=== PATIENT | male | born 1935 | race Caucasian/White ===

== ENCOUNTER 2016-08-08 10:57 | Emergency (ER) | payer BC ==
[~2016-08-08] VITALS: Ht 177.8 cm; Wt 105.0 kg
[2016-08-08 10:59] VITALS: BP 168/98; PULSE 75; RESP 15; TEMP 97.9; O2SAT 98
[2016-08-08] MEDS ORDERED: SODIUM CHLORIDE 0.9% FLUSH 10 ML FLUSH IVF PRN (11:30)
[2016-08-08 11:37] VITALS: BP 147/86; RESP 14; O2SAT 98
[2016-08-08 11:38] VITALS: BP 157/87; RESP 16
[2016-08-08 11:39] VITALS: BP 157/93; RESP 16
--- NOTE | 2016-08-08 11:50 | PD ---
HPI Chief Complaint: Dizziness Time Seen by Provider: 11:12 Travel History International Travel<30 days: No Contact w/Intl Traveler<30days: No Traveled to known affect area: No History of Present Illness HPI 81yo M with no PMH presents to the ED with c/o dizziness yesterday. States at 8am, he swiveled his chair and tried to get up but felt lightheaded and fell on left shoulder but has no pain there. FROM in left shoulder. Denies any head trauma or LOC. Had 2 more episodes of lightheadedness and both is when he sits up from lying position. Both times he lie back down and felt better. Currently does not have any dizziness. Denies any fever, chest pain, sob, n/v, abdominal pain, focal weakness or numbness. PFSH Past Medical History Chemotherapy: Yes (PROSTATE CA) Hypertension: Yes Past Surgical History Prostatectomy: Yes Social History Alcohol Use: Yes Tobacco Use: No Substance Use: No Allergies-Medications (Allergen,Severity, Reaction): Coded Allergies: No Known Allergies (Unverified , 08/08/16) Reported Meds & Prescriptions Reported Meds & Active Scripts Active No Active Prescriptions or Reported Medications Review of Systems Except as stated in HPI: all other systems reviewed are Neg Physical Exam Narrative GENERAL: 81yo M not in distress. SKIN: Focused skin assessment warm/dry. HEAD: Atraumatic. Normocephalic. EYES: Pupils equal and round. No scleral icterus. No injection or drainage. + Horizontal nystagmus bilaterally. States this is not new. No vertical nystagmus. ENT: No nasal bleeding or discharge. Mucous membranes pink and moist. NECK: Trachea midline. No JVD. CARDIOVASCULAR: Regular rate and rhythm. No murmur appreciated. RESPIRATORY: No accessory muscle use. Clear to auscultation. Breath sounds equal bilaterally. GASTROINTESTINAL: Abdomen soft, non-tender, nondistended. No rebound tenderness or guarding. MUSCULOSKELETAL: No obvious deformities. No clubbing. No cyanosis. No edema. Left shoulder: FROM left shoulder. No tenderness. Sensation intact. Distal pulses intact. NEUROLOGICAL: Awake and alert. No obvious cranial nerve deficits. Motor grossly within normal limits. Normal speech. PSYCHIATRIC: Appropriate mood and affect; insight and judgment normal. Data Data Last Documented VS Vital Signs Date Time Temp Pulse Resp B/P Pulse Ox O2 Delivery O2 Flow Rate FiO2 08/08/16 11:39 73 16 157/93 08/08/16 11:37 98 Room Air 08/08/16 10:59 97.9 Orders Electrocardiogram (08/08/16 ) Basic Metabolic Panel (Bmp) (08/08/16 11:27) Complete Blood Count With Diff (08/08/16 11:27) Magnesium (Mg) (08/08/16 11:27) Ckmb (Isoenzyme) Profile (08/08/16 11:27) Troponin I (08/08/16 11:27) Urinalysis - C+S If Indicated (08/08/16 11:27) Ct Brain W/O Iv Contrast(Rout) (08/08/16 11:27) Blood Glucose (08/08/16 11:27) Ecg Monitoring (08/08/16 11:27) Iv Access Insert/Monitor (08/08/16 11:27) Oximetry (08/08/16 11:27) Sodium Chloride 0.9% Flush (Ns Flush) (08/08/16 11:30) Orthostatic Vital Signs (08/08/16 11:27) CKMB (08/08/16 11:40) CKMB% (08/08/16 11:40) Labs Laboratory Tests Test 08/08/16 08/08/16 11:40 12:54 White Blood Count 8.2 TH/MM3 Red Blood Count 4.84 MIL/MM3 Hemoglobin 15.3 GM/DL Hematocrit 43.3 % Mean Corpuscular Volume 89.3 FL Mean Corpuscular Hemoglobin 31.6 PG Mean Corpuscular Hemoglobin 35.3 % Concent Red Cell Distribution Width 13.1 % Platelet Count 112 TH/MM3 Mean Platelet Volume 9.8 FL Neutrophils (%) (Auto) 71.3 % Lymphocytes (%) (Auto) 21.5 % Monocytes (%) (Auto) 6.1 % Eosinophils (%) (Auto) 0.8 % Basophils (%) (Auto) 0.3 % Neutrophils # (Auto) 5.8 TH/MM3 Lymphocytes # (Auto) 1.8 TH/MM3 Monocytes # (Auto) 0.5 TH/MM3 Eosinophils # (Auto) 0.1 TH/MM3 Basophils # (Auto) 0.0 TH/MM3 CBC Comment DIFF FINAL Differential Comment Sodium Level 143 MEQ/L Potassium Level 4.3 MEQ/L Chloride Level 109 MEQ/L Carbon Dioxide Level 26.8 MEQ/L Anion Gap 7 MEQ/L Blood Urea Nitrogen 21 MG/DL Creatinine 1.10 MG/DL Estimat Glomerular Filtration 64 ML/MIN Rate Random Glucose 102 MG/DL Calcium Level 8.8 MG/DL Magnesium Level 2.3 MG/DL Total Creatine Kinase 141 U/L Creatine Kinase MB 1.2 NG/ML Troponin I 0.04 NG/ML Urine Color LIGHT-YELLOW Urine Turbidity CLEAR Urine pH 6.5 Urine Specific Garner 1.009 Urine Protein NEG mg/dL Urine Glucose (UA) NEG mg/dL Urine Ketones NEG mg/dL Urine Occult Blood NEG Urine Nitrite NEG Urine Bilirubin NEG Urine Urobilinogen LESS THAN 2.0 MG/DL Urine Leukocyte Esterase NEG Urine RBC LESS THAN 1 /hpf Microscopic Urinalysis Comment CULT NOT INDICATED MDM Medical Decision Making Medical Screen Exam Complete: Yes Emergency Medical Condition: Yes Interpretation(s) EKG: NSR 67bpm. 1st degree AV block. No ST segment elevation or depression. Differential Diagnosis Arrhythmia vs. dehydration vs. electrolyte abnormality vs. intracranial mass Narrative Course 81yo M with no PMH presents to the ED with c/o lightheaded when he sat up. It has resolved. No focal neurologic deficits. Labs reviewed, no leukocytosis. Troponin negative at 0.04. Pt has no chest pain or sob. BUN mildly elevated at 21. Pt able to orally hydrate. UA negative. CT brain negative. Pt has no abnormality on exam and has good follow up. Pt currently not dizzy and wants to go home. Return precautions given. Diagnosis Primary Impression: Dizziness Patient Instructions: General Instructions Departure Forms: Tests/Procedures Additional Instructions: Please follow up with your PMD for further work up of your dizziness. Please return to the ED if you have any chest pain, shortness of breath, weakness or numbness or worsening symptoms. Med/Other Pt SpecificInfo: No Change to Meds Scripts No Active Prescriptions or Reported Meds Disposition: 01 DISCHARGE HOME Condition: Stable ParkPatrica DO Aug 08, 2016 11:50
[2016-08-08 11:56] LABS: AUTOMATED NEUTROPHIL # 5.8 TH/MM3 (1.8-7.7); BASOPHIL % 0.3 % (0.0-2.0); EOSINOPHIL # 0.1 TH/MM3 (0-0.4); EOSINOPHIL % 0.8 % (0.0-4.0); HEMATOCRIT 43.3 % (39.0-51.0); HEMO FLAGS DIFF FINAL; LYMPH % 21.5 % (9.0-44.0); LYMPHOCYTE # 1.8 TH/MM3 (1.0-4.8); MEAN CELL VOLUME 89.3 FL (80.0-100.0); MEAN CORPUSCULAR HEMOGLOBIN 31.6 PG (27.0-34.0); MEAN CORPUSCULAR HGB CONC 35.3 % (32.0-36.0); MONO % 6.1 % (0.0-8.0); NEUT % 71.3 % (16.0-70.0); PLATELET COUNT 112 TH/MM3 (150-450); RED BLOOD COUNT 4.84 MIL/MM3 (4.50-5.90); RED CELL DISTRIBUTION WIDTH 13.1 % (11.6-17.2); WHITE BLOOD COUNT 8.2 TH/MM3 (4.0-11.0)
--- NOTE | 2016-08-08 12:10 | RADRPT ---
EXAM DATE/TIME: 08/08/2016 11:53 [facility] COMPARISON: No previous studies available for comparison. INDICATIONS : Dizziness for two days. RADIATION DOSE: 56.35 CTDIvol (mGy) MEDICAL HISTORY : Hypertension. Carcinoma, prostate. SURGICAL HISTORY : Prostatectomy. ENCOUNTER: Initial ACUITY: 1 day PAIN SCALE: 0/10 LOCATION: Bilateral head TECHNIQUE: Multiple contiguous axial images were obtained of the head. Using automated exposure control and adj ustment of the mA and/or kV according to patient size, radiation dose was kept as low as reasonably a chievable to obtain optimal diagnostic quality images. DICOM format image data is available electro nically for review and comparison. FINDINGS: CEREBRUM: The ventricles are normal for age. There is bilateral cortical atrophy and chronic white matter myles ges. No evidence of midline shift, mass lesion, hemorrhage or acute infarction. No extra-axial fluid collections are seen. POSTERIOR FOSSA: The cerebellum and brainstem are intact. The 4th ventricle is midline. The cerebellopontine angle i s unremarkable. EXTRACRANIAL: The visualized portion of the orbits is intact. SKULL: The calvaria is intact. No evidence of skull fracture. CONCLUSION: Normal examination for a patient of this age. Teofilo Garibay MD on August 08, 2016 at 12:06 Board Certified Radiologist. This report was verified electronically.
[2016-08-08 12:18] LABS: ANION GAP 7 MEQ/L (5-15); BICARBONATE 26.8 MEQ/L (21.0-32.0); BLOOD UREA NITROGEN 21 MG/DL (7-18); CHLORIDE 109 MEQ/L (98-107); GLOMERULAR FILTRATION RATE 64 ML/MIN (>89); MAGNESIUM 2.3 MG/DL (1.5-2.5); POTASSIUM 4.3 MEQ/L (3.5-5.1); SODIUM (NA) 143 MEQ/L (136-145)
[2016-08-08 12:21] LABS: CREATINE KINASE 141 U/L (39-308)
[2016-08-08 12:33] LABS: CKMB 1.2 NG/ML (0.5-3.6)
[2016-08-08 13:03] LABS: BLOOD, URINE NEG (NEG); GLUCOSE,URINE NEG (NEG); KETONE, URINE NEG (NEG); NITRITE,URINE NEG (NEG); PH, URINE 6.5 (5.0-8.5); URINE COLOR LIGHT-YELLOW (YELLW/STRAW)
[2016-08-08 13:06] LABS: COMMENT (UR) CULT NOT INDICATED; CULTURE IF INDICATED CULT NOT INDICATED
--- NOTE | 2016-08-09 11:50 | EKG ---
Date Performed: 08/08/2016 Time Performed: 11:19:57 PTAGE: 81 years EKG: Sinus rhythm WITH FIRST DEGREE AV BLOCK ABNORMAL ECG NO PREVIOUS TRACING DOCTOR: Tomas Potts Interpretating Date/Time 08/09/2016 11:47:45
== END 2016-08-08 15:29 | disposition home or self-care (01) ==
LOC: NEPC 10:57
DX: R42 Dizziness and giddiness (principal); I44.0 Atrioventricular block, first degree; H55.00 Unspecified nystagmus; I10 Essential (primary) hypertension; Z85.46 Personal history of malignant neoplasm of prostate
CPT/HCPCS: 70450; 80048; 81001; 82550; 82552; 83735; 84484; 85025; 93005